=== PATIENT | female | born 1950 | race Caucasian/White ===

== ENCOUNTER 2017-01-03 06:32 | Day surgery (SDC) | payer MEDICARE ==
[~2017-01-03] VITALS: Ht 162.6 cm; Wt 75.9 kg
[~2017-01-03 06:32] MED LIST: ALPR1 PO; ASPI-130 PO; B COTAB3 PO; CARI1TAB34 PO; CIPR500T2 PO; FERR324T4 PO; FLUO20 PO; LANS30 PO; LEVE750T8 PO; LOPI600T OR; METO100 PO; OXYC-360 PO; PLAV75TA OR; ZOCO10TA PO; vitamin d
[2017-01-03 07:38] VITALS: BP 157/75; PULSE 70; RESP 16; TEMP 98.3; O2SAT 95
[2017-01-03] MEDS ORDERED: CLOP75TA PO (07:48)
[2017-01-03] MEDS ORDERED: ISOS60TA PO (07:48)
[2017-01-03] MEDS ORDERED: IBUP200C PO (07:48)
[2017-01-03] MEDS ORDERED: ATOR20TA15 PO (07:48)
[2017-01-03] MEDS ORDERED: NITR0.4S SL (07:48)
[2017-01-03] MEDS ORDERED: METO100T PO (07:48)
[2017-01-03] MEDS ORDERED: HEPARIN-NS/PF INJ 500 ML ONE (09:07)
[2017-01-03] MEDS ORDERED: HEPARIN SODIUM - IV 10,000 UNITS/10 ML VIAL ONE (09:08)
[2017-01-03] MEDS ORDERED: NITROGLYCERIN INJ 5 ML ONE (09:08)
[2017-01-03] MEDS ORDERED: MIDAZOLAM HCL 5 MG/5 ML VIAL ONE ×2 (09:08→09:55)
[2017-01-03] MEDS ORDERED: POTASSIUM CHLORIDE 20 MEQ CONTROLLED RELEASE TAB PO PRN (11:30)
[2017-01-03] MEDS ORDERED: METOCLOPRAMIDE HCL 10 MG/2 ML VIAL IV PRN (11:30)
[2017-01-03] MEDS ORDERED: NITROPRUSSIDE INJ 50 MG in DEXTROSE 5% IN WATER INJ 248 ML IV SCH ×2 (11:30)
[2017-01-03] MEDS ORDERED: ENALAPRILAT 1.25 MG/ML VIAL IV PRN (11:30)
[2017-01-03] MEDS ORDERED: BACITRACIN OINT 0.9 GM PKT TOP ONE (11:30)
[2017-01-03] MEDS ORDERED: LORazepam 2 MG/ML VIAL IV PRN (11:30)
[2017-01-03] MEDS ORDERED: MISC INFORMATION XX PRN (11:30)
[2017-01-03] MEDS ORDERED: LABETALOL HCL 100 MG/20 ML VIAL IVP PRN (11:30)
[2017-01-03] MEDS ORDERED: SODIUM CHLOR 0.9% 250 ML INJ 250 ML IV PRN (11:30)
[2017-01-03] MEDS ORDERED: MORPHINE SULFATE 4 MG/ML INJ IV PUSH PRN (11:30)
[2017-01-03] MEDS ORDERED: ATROPINE SULFATE 1 MG/ML VIAL IV PRN (11:30)
[2017-01-03] MEDS ORDERED: cloNIDine HCL 0.1 MG TAB PO PRN (11:30)
[2017-01-03] MEDS ORDERED: oxyCODONE/ACETAMINOPHEN 5 MG/325 MG TAB PO PRN ×2 (11:30)
[2017-01-03] MEDS ORDERED: ONDANSETRON HCL 4 MG/2 ML VIAL IV PRN (11:30)
[2017-01-03] MEDS ORDERED: LIDOCAINE HCL 1% 50 ML VIAL INFIL PRN (11:30)
--- NOTE | 2017-01-03 12:58 | MA ---
cc: YURI,ABODUL Trevino MD DATE: 01/03/2017 REASON FOR PROCEDURE Peripheral angiography with intervention. PROCEDURE PERFORMED 1. Fluoroscopy with interpretation. 2. Descending aortography. 3. Bilateral lower extremity peripheral angiography with first, second, third, visualization interpretation. 4. Orbital rotational atherectomy and balloon angioplasty with drug coated balloon of the chronically occluded left superficial femoral artery. 5. Percutaneous endovascular stenting with self-expanding stent a left external iliac artery. METHOD: The risks, benefits and alternatives were discussed with the patient. The patient understood and consented to procedure. The patient brought the catheterization lab and catheterization table on right groin prepped and draped in sterile fashion. Right groin was anesthetized 2% lidocaine per right common femoral artery is cannulated with a micropuncture sheath. 5-Italian 11 cm sheath was then exchanged. Descending aortography; The descending aortography was performed anterior-posterior using a 24 mL contrast injection good opacification. Descending aorta has rather diffuse heavily calcific eccentric plaque throughout. There is left renal artery stenosis of 80% ostial. Pullback gradient across the entire aorta did not reveal high-grade gradient. Peripheral angiography; 1. The left common iliac artery has a 75% ostial stenosis eccentric and calcific. Left external iliac artery has a dissection flap with an 80% stenosis present. The left internal iliac artery has minor luminal irregularities. Left common femoral profunda have minor luminal irregularities. Left superficial femoral artery is occluded in the proximal segment. Recannulizes via collaterals in the distal segment. Left popliteal has minor luminal irregularities. 2. Left posterior tibial peroneal arteries are patent. 2. The right common iliac artery also has rather diffuse 50% stenosis throughout. The right internal iliac artery is patent with moderate stenosis present. The right external iliac artery subtotally occluded with severe stenosis throughout, the sheath is occlusive to the left common femoral. The left common femoral so well visualized. The superficial femoral, popliteal, profunda posterior tibial peroneal and anterior tibial vessels appear to be patent with minor irregularities. Percutaneous intervention; the case was discussed with Dr. Kd Gallagher, Vascular surgeon. At this point does appear that she is going to need surgical revascularization, possibly aortobifemoral or axial bifemoral bypass. We decided percutaneous attempt of revascularization of left superficial femoral artery, would avoid the need for an additional fem-pop bypass on that side. Therefore we elected proceed with attempted percutaneous revascularization of the SFA. A 6- Italian 45 cm sternal destination pinnacle sheath was advanced up-and-over the arch in the left common femoral artery. A 0.035 inches 160 cm stiff angle Glidewire was navigated behind a trailblazer catheter through the chronic occlusion into the popliteal artery 1.5 mm CSI atherectomy catheter was then prepped advanced over the wire orbital rotational atherectomy was performed on five sequential passes through the left superficial femoral artery 5.0 x 200 mm Medtronic balloon was then deployed on two sequential inflations to the left superficial femoral artery. A 5.0 x 115 mm Medtronic drug coated balloon was deployed two inflations in the mid and proximal superficial fornix for prolonged inflation. Repeat angiography showed no significant residual stenosis, USAMA III flow. We did elect to use a short stent to cover the dissection flap in the left external iliac artery to maintain adequate inflow to the SFA until she can undergo full surgical revascularization. 7.0 x 20 mm self-expanding stent was then carefully deployed in the left external iliac artery. Careful attention was paid not to cover the internal iliac artery and hypo gastric artery. Stent was then postdilated to 6.0 x 20 mm balloon. Repeat angiography showed no significant residual stenosis, USAMA-III flow sheath was then exchanged for a short sheath sewn into place to be removed manual hemostasis. Heparin was administered throughout the entire procedure maintain appropriate coagulation. CONCLUSION 1. Heavily calcified, moderate diffuse disease throughout the descending aorta without high-grade stenosis. 2. Left renal artery stenosis. 3. Severe bilateral iliac inflow disease. 4. Subtotally occluded right external iliac and common femoral arteries. 5. Chronically occluded left superficial femoral artery. 6. Successful or rotational atherectomy, balloon angioplasty with drug coated balloon of the left superficial femoral artery. 7. 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 PLAN The patient monitored closely for any post procedural complications. i will consult Dr. Gallagher for consideration of surgical revascularization for her bilateral iliac inflow disease. Continue Plavix. MD OPAL Kirk/melinda /11:12 AM /11:38 AM [facility]ITALMyra
--- NOTE | 2017-01-03 13:07 | MB ---
cc: JS MACHADO MD DATE OF CONSULTATION 01/03/2017 REASON FOR CONSULTATION This is a 66-year-old lady who has had buttock and hip claudication she states for the last two years. She is a diabetic and she has been having some problems with some paresthesias in both of her feet and she is not sure if these paresthesias are made worse since she started having the problem with the buttock pain. She states she is able walk probably about 25-30 feet. She denies any real significant rest pain, although she states that the paresthesias in her feet wake her up at night at least twice. She also states that she cannot sleep on her back because she has some hip pain. 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 Vein was harvested from the left lower extremity. She states that her left lower extremity is worse than her right lower extremity. PAST MEDICAL HISTORY Her past medical history is also significant for hypertension. REVIEW OF SYSTEMS I have reviewed her review of systems per Dr. Bajwa, as well as her medications. PHYSICAL EXAMINATION VITAL SIGNS: Blood pressure is 140/70. Pulse is 70, respirations are 20. GENERAL: This is an alert, cooperative white female who is in no acute distress. SKIN, HEAD, EYES, EARS, NOSE, AND THROAT: Negative. NECK: Supple. I cannot hear a carotid bruits. CHEST: Clear to auscultation and percussion. HEART: Normal sinus rhythm. There is a well-healed median sternotomy incision. The right groin has a catheter in place and the left groin has a palpable left femoral pulse. The popliteal pulses are palpable on the left. There are no pulses below the groin in the right lower extremity and there are no pulses in the feet in the left lower extremity. The feet are warm and intact and neurologically without problem. NEUROLOGIC: The patient is intact. IMPRESSION This patient has significant vascular insufficiency which has been personally addressed by Dr. Bajwa. I have discussed the case with Dr. Peter who is tied up at the moment in the hybrid room. The patient is a good candidate probably for conservative therapies such as cessation of smoking and Pletal therapy, as well as an exercise program. I have given her an appointment to see Dr. Peter in the vascular clinic. Thank you very much for allowing me to see your patient. Js Machado MD [facility]/SHAYY /12:51 PM /12:57 PM
[2017-01-05] MEDS ORDERED: CLOPIDOGREL 75 MG TAB PO SCH (09:00)
[2017-01-05] MEDS ORDERED: ASPIRIN EC 81 MG TABEC PO SCH (09:00)
== END 2017-01-03 19:38 | disposition home or self-care (01) ==
LOC: HDOC 06:32 → HDIC 06:33 → HDOC 19:38
PROVIDERS: ATTEND Internal Medicine
DX: I70.212 Atherosclerosis of native arteries of extremities with intermittent claudication, left leg (principal); I70.1 Atherosclerosis of renal artery; I74.5 Embolism and thrombosis of iliac artery; I10 Essential (primary) hypertension; E11.9 Type 2 diabetes mellitus without complications; I25.2 Old myocardial infarction; Z95.1 Presence of aortocoronary bypass graft; Z79.01 Long term (current) use of anticoagulants
CPT/HCPCS: 37221; 37225; 75625; 75716; 85002; 86850; 86900; 86901; C1714; C1725; C1751; C1769; C1876; C1893; C2623; J1644; J2250; J3010